=== PATIENT | female | born 1995 | race Two or more races ===

== ENCOUNTER 2017-05-12 23:28 | Emergency (ER) | payer MEDICAID ==
[~2017-05-12] VITALS: Ht 154.9 cm; Wt 68.9 kg
[2017-05-12 23:45] VITALS: BP 132/73
--- NOTE | 2017-05-13 | Emergency Room Report ---
History of Present Illness General Chief Complaint: Abdominal Pain Source: Patient Present Illness HPI 22-year-old female with no sig pmhx p/w abdominal pain 2 days. Patient states pain started gradually, localized to epigastric and left upper quadrant, non radiating, burning and cramping in nature, intermittent. No relieving or exacerbating factors. Severity is mild. Denies nvd. Denies fever, chills. No hx of abdominal surgeries. No hx of endoscopies/colonoscopies. Patient has been eating and drinking well No dysuria, hematuria, abnormal vaginal discharge Allergies: Coded Allergies: IBUPROFEN (Verified Allergy, Unknown, 05/12/17) Patient History Past Medical History: see triage record Past Surgical History: none Pertinent Family History: none Last Menstrual Period: 05/05/17 Now: No : 1 Para: 1 Reviewed Nursing Documentation: PMH: Agreed, PSxH: Agreed Nursing Documentation-PMH Past Medical History: No Stated History Review of Systems All Other Systems: negative except mentioned in HPI Physical Exam Vital Signs Date Time Temp Pulse Resp B/P (MAP) Pulse Ox O2 Delivery O2 Flow Rate FiO2 05/12/17 23:35 98.1 83 16 132/73 98 Room Air Sp02 EP Interpretation: reviewed, normal General Appearance: normal inspection, well appearing, no apparent distress, alert, GCS 15, non-toxic Head: normocephalic, atraumatic Eyes: bilateral eye normal inspection, bilateral eye PERRL, bilateral eye EOMI ENT: normal ENT inspection, normal pharynx, normal voice, moist mucus membranes Neck: normal inspection, full range of motion, supple Respiratory: normal inspection, lungs clear, normal breath sounds, no respiratory distress, no retraction, no wheezing, speaking full sentences, chest symmetrical Cardiovascular #1: normal inspection, regular rate, rhythm, no edema, normal capillary refill Cardiovascular #2: 2+ radial (R), 2+ radial (L) Gastrointestinal: normal inspection, non tender, soft, non-distended, no guarding Musculoskeletal: normal inspection, back normal, normal range of motion, non- tender Neurologic: normal inspection, alert, oriented x3, responsive, motor strength/ tone normal, sensory intact, normal gait, speech normal Psychiatric: normal inspection, judgement/insight normal, memory normal Skin: normal inspection, normal color, no rash, warm/dry, well hydrated, normal turgor Medical Decision Making Diagnostic Impression: Primary Impression: Abdominal pain ER Course 22-year-old female with abdominal pain Differential Diagnosis: Gastritis, gastroenteritis, UTI/pyelo At this time abdomen is soft nontender, not likely to have acute intra- abdominal surgical pathology, will hold CT for now. Plan: Basic labs, ua, ekg IVF ER course: Patient has remained stable during ED stay. Pain improved. Repeat abdominal exam is nontender, labs unremarkable Tolerating PO due to benign physical exam, and the fact that patient appears well, do not believe there is acute intraabdominal pathology to warrant CT scan at this time. Disposition: Patient is to be discharged to home. Patient is instructed to follow up with their primary care doctor within 5 days. Strict return precautions discussed with patient such as fever, chills, worsening/severe abdominal pain, nausea, vomiting, black or bloody stools, which may indicate severe illness. Patient verbalizes understanding and agrees with plan. Please note that this Emergency Department Report was dictated using [employer] assistant technology software, occasionally this can lead to erroneous entry secondary to interpretation by the dictation equipment Laboratory Tests Test 05/12/17 23:50 White Blood Count 10.6 K/UL (4.8-10.8) Red Blood Count 3.97 M/UL (4.20-5.40) L Hemoglobin 12.8 G/DL (12.0-16.0) Hematocrit 38.7 % (37.0-47.0) Mean Corpuscular Volume 97 FL (80-99) Mean Corpuscular Hemoglobin 32.1 PG (27.0-31.0) H Mean Corpuscular Hemoglobin Concent 33.0 G/DL (32.0-36.0) Red Cell Distribution Width 11.1 % (11.6-14.8) L Platelet Count 322 K/UL (150-450) Mean Platelet Volume 7.6 FL (6.5-10.1) Neutrophils (%) (Auto) 49.8 % (45.0-75.0) Lymphocytes (%) (Auto) 39.7 % (20.0-45.0) Monocytes (%) (Auto) 7.5 % (1.0-10.0) Eosinophils (%) (Auto) 2.3 % (0.0-3.0) Basophils (%) (Auto) 0.8 % (0.0-2.0) Urine Color Pale yellow Urine Appearance Clear Urine pH 6.5 (4.5-8.0) Urine Specific [place] 1.020 (1.005-1.035) Urine Protein Negative (NEGATIVE) Urine Glucose (UA) Negative (NEGATIVE) Urine Ketones Negative (NEGATIVE) Urine Occult Blood 2+ (NEGATIVE) H Urine Nitrite Negative (NEGATIVE) Urine Bilirubin Negative (NEGATIVE) Urine Urobilinogen Normal MG/DL (0.0-1.0) Urine Leukocyte Esterase 1+ (NEGATIVE) H Urine RBC 5-10 /HPF (0 - 2) H Urine WBC 0-2 /HPF (0 - 2) Urine Squamous Epithelial Cells Many /LPF (NONE/OCC) H Urine Bacteria Few /HPF (NONE) Urine HCG, Qualitative Negative Sodium Level 140 MMOL/L (136-145) Potassium Level 3.5 MMOL/L (3.5-5.1) Chloride Level 103 MMOL/L (98-107) Carbon Dioxide Level 31 MMOL/L (21-32) Anion Gap 6 mmol/L (5-15) Blood Urea Nitrogen 14 mg/dL (7-18) Creatinine 0.7 MG/DL (0.55-1.30) Estimate Glomerular Filtration Rate > 60 mL/min (>60) Glucose Level 93 MG/DL (74-106) Calcium Level 9.4 MG/DL (8.5-10.1) Total Bilirubin 0.2 MG/DL (0.2-1.0) Aspartate Amino Transferase (AST) 14 U/L (15-37) L Alanine Aminotransferase (ALT) 18 U/L (12-78) Alkaline Phosphatase 112 U/L (46-116) Total Protein 8.5 G/DL (6.4-8.2) H Albumin 4.5 G/DL (3.4-5.0) Globulin 4.0 g/dL Albumin/Globulin Ratio 1.1 (1.0-2.7) Lipase 133 U/L (73-393) Urine Opiates Screen Negative (NEGATIVE) Urine Barbiturates Screen Negative (NEGATIVE) Phencyclidine (PCP) Screen Negative (NEGATIVE) Urine Amphetamines Screen Negative (NEGATIVE) Urine Benzodiazepines Screen Negative (NEGATIVE) Urine Cocaine Screen Negative (NEGATIVE) Urine Marijuana (THC) Screen Negative (NEGATIVE) Last Vital Signs Date Time Temp Pulse Resp B/P (MAP) Pulse Ox O2 Delivery O2 Flow Rate FiO2 05/12/17 23:35 98.1 83 16 132/73 98 Room Air Disposition: HOME, SELF-CARE Condition: Improved Patient Instructions: Abdominal Pain, Adult William Zimmerman M.D. May 13, 2017 00:00
[2017-05-13 00:32] LABS: APPEARANCE,URINE CLEAR; KETONES,URINE NEGATIVE (NEGATIVE); LEUKOCYTE ESTERASE ,URINE 1+ (NEGATIVE); NITRITE,URINE NEGATIVE (NEGATIVE); PH,URINE 6.5 (4.5-8.0); PROTEIN,URINE NEGATIVE (NEGATIVE); UROBILINOGEN,URINE NORMAL MG/DL (0.0-1.0)
[2017-05-13 00:35] LABS: BASOPHILS % (AUTO) 0.8 % (0.0-2.0); EOSINOPHILS % (AUTO) 2.3 % (0.0-3.0); LYMPHOCYTES % (AUTO) 39.7 % (20.0-45.0); MEAN CORPUSCULAR HEMOGLOBIN 32.1 PG (27.0-31.0); MEAN CORPUSCULAR VOLUME 97 FL (80-99); MEAN PLATELET VOLUME 7.6 FL (6.5-10.1); MONOCYTES % (AUTO) 7.5 % (1.0-10.0); NEUTROPHILS % (AUTO) 49.8 % (45.0-75.0); PLATELET COUNT 322 K/UL (150-450); RED BLOOD COUNT 3.97 M/UL (4.20-5.40); RED CELL DISTRIBUTION WIDTH 11.1 % (11.6-14.8); WHITE BLOOD COUNT 10.6 K/UL (4.8-10.8)
[2017-05-13 00:52] LABS: ANION GAP 6 mmol/L (5-15); CALCIUM 9.4 MG/DL (8.5-10.1); CARBON DIOXIDE 31 MMOL/L (21-32); CHLORIDE 103 MMOL/L (98-107); CREATININE 0.7 MG/DL (0.55-1.30); GLOMERULAR FILTRATION RATE > 60 mL/min (>60); POTASSIUM 3.5 MMOL/L (3.5-5.1); SODIUM 140 MMOL/L (136-145)
[2017-05-13 01:01] LABS: BACTERIA,URINE FEW /HPF; SQUAMOUS EPITHELIAL CELL,UR MANY /LPF (NONE/OCC); WBC,URINE 0-2 /HPF (0 - 2)
[2017-05-13 01:07] LABS: ALANINE AMINOTRANSFERASE 18 U/L (12-78); ALBUMIN/GLOBULIN RATIO 1.1 (1.0-2.7); ASPARTATE AMINO TRANSFERASE 14 U/L (15-37); LIPASE 133 U/L (73-393); TOTAL PROTEIN 8.5 G/DL (6.4-8.2)
[2017-05-13 01:39] VITALS: BP 124/70
== END 2017-05-13 01:39 | disposition home or self-care (01) ==
LOC: EMR 23:51
DX: R10.9 Unspecified abdominal pain (principal); Z88.6 Allergy status to analgesic agent
CPT/HCPCS: 36415; 80053; 80307; 81003; 81025; 83690; 85025; 96360; 99284

== ENCOUNTER 2017-11-20 20:00 | Emergency (ER) | payer MEDICAID ==
[~2017-11-20] VITALS: Ht 157.5 cm; Wt 68.0 kg
[2017-11-20 20:31] VITALS: BP 124/74
[2017-11-20] MEDS ORDERED: CEPHALEXIN500 MG ORAL (20:48)
[2017-11-20 21:00] VITALS: BP 124/74
--- NOTE | 2017-11-21 15:28 | Emergency Room Report ---
History of Present Illness General Chief Complaint: Pain Source: Patient Present Illness HPI Patient present with complaints of possible infection to the right breast area Patient reports increased discomfort from that area Some discharge Ports that earlier there was some greenish discharge patient has had a nipple ring that was placed about one year ago Denies any other chest pain or shortness of breath Had questionable subjective fever earlier today Allergies: Coded Allergies: IBUPROFEN (Verified Allergy, Unknown, 05/12/17) Patient History Past Medical History: see triage record Pertinent Family History: none Last Menstrual Period: 11/18/17 Now: No : 2 Para: 1 Reviewed Nursing Documentation: PMH: Agreed; PSxH: Agreed Nursing Documentation-PMH Past Medical History: No Stated History Review of Systems All Other Systems: negative except mentioned in HPI Physical Exam Vital Signs Date Time Temp Pulse Resp B/P (MAP) Pulse Ox O2 Delivery O2 Flow Rate FiO2 11/20/17 20:02 98.6 70 14 124/74 97 Room Air 98.6 Sp02 EP Interpretation: reviewed, normal General Appearance: well appearing, no apparent distress Head: normocephalic, atraumatic Eyes: bilateral eye PERRL, bilateral eye EOMI ENT: normal pharynx Neck: supple Respiratory: lungs clear Cardiovascular #1: regular rate, rhythm Gastrointestinal: non tender, soft Musculoskeletal: normal inspection Neurologic: alert, oriented x3, responsive Skin: other - Examination of the right breast, with female nurse yusuf in the room patient does have a nipple ring still in place on the right side, there is some mild erosion into the area lower area on the lateral aspect, no obvious discharge was reproduced no mass or erythema, Lymphatic: no adenopathy Medical Decision Making Diagnostic Impression: Primary Impression: cellulitis ER Course Given the patient's history and findings it was recommended for her to remove the stud/earring from the right areolar region, patient was also placed on antibiotics at this time does not require further blood work or imaging does not appear septic or toxic no palpable masses patient will follow closely and return with any changes, Last Vital Signs Date Time Temp Pulse Resp B/P (MAP) Pulse Ox O2 Delivery O2 Flow Rate FiO2 11/20/17 21:00 70 14 124/74 97 Room Air 11/20/17 20:31 98.6 98.6 Status: improved Disposition: HOME, SELF-CARE Condition: Improved Scripts Cephalexin* (KEFLEX*) 500 Mg Capsule 500 MG ORAL EVERY 6 HOURS for 7 Days, CAP Prov: Rocky Henderson DO 11/20/17 Referrals: [facility],REFERRING (PCP) Patient Instructions: Cellulitis, [id number] Additional Instructions: Patient is provided with the discharge instructions notified to follow up with primary doctor in the next 2-3 days otherwise return to the er with any worsening symptoms. Please note that this report is being documented using [employer] technology. This can lead to erroneous entry secondary to incorrect interpretation by the dictating instrument. Rocky Henderson DO Nov 21, 2017 15:28
== END 2017-11-20 21:00 | disposition home or self-care (01) ==
LOC: EMR 20:32
DX: N61.0 Mastitis without abscess (principal); Z88.6 Allergy status to analgesic agent
CPT/HCPCS: 99282

== ENCOUNTER 2018-10-03 15:56 | Emergency (ER) | payer MEDICAID ==
[~2018-10-03] VITALS: Ht 160 cm; Wt 71.7 kg
[~2018-10-03 15:56] MED LIST: CEPHALEXIN500 MG ORAL; NKM
--- NOTE | 2018-10-03 16:14 | NUR ---
ED Nurse Note: Pt came in due to left 4th digit injury. Note twisting and mild swelling. Pt reported to injure it at her work place.
[2018-10-03 16:30] VITALS: BP 135/70
[2018-10-03] MEDS ORDERED: TYLENOL EXTRA500 MG ORAL (17:00)
--- NOTE | 2018-10-03 17:00 | Emergency Room Report ---
History of Present Illness General Chief Complaint: Upper Extremity Injury Source: Patient (Manfred Velasquez) Present Illness HPI 23-year-old female with no significant past medical history currently 3 months , G3, , here complaining of pain in the left ring finger after a fall., Upon movement of her finger, finger looks deformed, denies pain radiation tingling numbness. Taken any medication for pain. Later tells me that she also fell on the left side of body and slightly hit the left side of her face to the ground, denying dizziness, loss of consciousness, nausea vomiting, headache. Reports that her abdomen was not impacted. Denies abdominal pain, vaginal spotting or bleeding. S OB, palpitation, chest pain, dizziness, and all other associated symptoms patient is sitting comfortably. (Manfred Velasquez) Allergies: Coded Allergies: IBUPROFEN (Verified Allergy, Unknown, 10/03/18) Patient History Past Medical History: see triage record Past Surgical History: unable to obtain Pertinent Family History: none Now: Yes - 3month : 3 Para: 1 Immunizations: UTD Reviewed Nursing Documentation: PMH: Agreed; PSxH: Agreed (Manfred Velasquez) Nursing Documentation-PMH Past Medical History: No History, Except For Hx Hypertension: Yes (Manfred Velasquez) Review of Systems All Other Systems: negative except mentioned in HPI (Manfred Velasquez) Physical Exam Vital Signs Date Time Temp Pulse Resp B/P (MAP) Pulse Ox O2 Delivery O2 Flow Rate FiO2 10/03/18 16:04 98.6 77 18 96 Room Air 10/03/18 16:30 135/70 Sp02 EP Interpretation: reviewed, normal General Appearance: normal inspection, well appearing, no apparent distress, alert, GCS 15 Head: normocephalic, atraumatic Eyes: bilateral eye normal inspection, bilateral eye PERRL ENT: normal ENT inspection, normal pharynx Neck: normal inspection, full range of motion, supple Respiratory: normal inspection, chest non-tender, lungs clear, no wheezing Cardiovascular #1: normal inspection, regular rate, rhythm, no murmur, normal capillary refill Gastrointestinal: normal inspection, non tender, soft Genitourinary: no CVA tenderness Musculoskeletal: back normal, gait/station normal, normal range of motion, other - Flex deformity of left ring finger not tender to palpation Neurologic: normal inspection, alert, oriented x3 Psychiatric: normal inspection, judgement/insight normal Skin: normal inspection, normal color, no rash Lymphatic: normal inspection, no adenopathy (Manfred Velasquez) Medical Decision Making PA Attestation All my diagnosis and treatment plans were reviewed ad discussed with my supervising physician Dr. Gallegos (Manfred Velasquez) Diagnostic Impression: Primary Impression: Mallet deformity of left ring finger Additional Impression: Contusion of left arm ER Course 23-year-old female with no significant past medical history currently 3 months , G3, , here complaining of pain in the left ring finger after a fall., Upon movement of her finger, finger looks deformed, denies pain radiation tingling numbness. Taken any medication for pain. Later tells me that she also fell on the left side of body and slightly hit the left side of her face to the ground, denying dizziness, loss of consciousness, nausea vomiting, headache. Reports that her abdomen was not impacted. Denies abdominal pain, vaginal spotting or bleeding. S OB, palpitation, chest pain, dizziness, and all other associated symptoms patient is sitting comfortably. Ddx considered but are not limited to: left finger fracture, mallet finger, sprain, strain, arm contusion, arm fracture, cerebral hematoma, concussion Vital signs: are WNL, pt. is afebrile H&PE are most consistent with: left ring finger mallet finger, left arm contusion ORDERS: left finger Xray, tylenol ED INTERVENTIONS: None required at this time. DISCHARGE: At this time pt. is stable for d/c to home. Will provide printed patient care instructions, and any necessary prescriptions. Care plan and follow up instructions have been discussed with the patient prior to discharge. follow up with Ortho (Manfred Velasquez) Other X-Ray Diagnostic Results Other X-Ray Diagnostic Results : X-Ray ordered: left finger # of Views/Limited Vs Complete: 3 View Indication: Swelling EP Interpretation: Yes PA Xray: Interpretation reviewed, by supervising MD, and agrees with findings. Interpretation: no dislocation, no fractures, other - mallet deformity Impression: No acute disease Electronically Signed by: manfred josé PA-C (Manfred Velasquez) Other X-Ray Diagnostic Results : Electronically Signed by: Mirna Orellana documentation of Xray reviewed by me and is accurate, Herman Gallegos MD (Herman Gallegos MD) Last Vital Signs Date Time Temp Pulse Resp B/P (MAP) Pulse Ox O2 Delivery O2 Flow Rate FiO2 10/03/18 16:30 98.2 75 20 135/70 98 Room Air (Manfred Velasquez) Disposition: HOME, SELF-CARE Condition: Stable Scripts Acetaminophen* (TYLENOL EXTRA STRENGTH*) 500 Mg Tablet 500 MG ORAL Q8H PRN for Prn Headache/Temp > 101, #30 TAB 0 Refills Prov: Manfred Velasquez 10/03/18 Patient Instructions: Head Injury, Adult, [id number], Mallet Finger Additional Instructions: Come back to the emergency room if dizziness, vomiting, severe headache CT scan contraindicated at this point due to your status Manfred Velasquez October 03, 2018 17:00 Herman Galelgos MD October 04, 2018 22:38
[2018-10-03 17:11] VITALS: BP 128/82
--- NOTE | 2018-10-03 17:11 | NUR ---
ER DISCHARGE NOTE: Patient is cleared to be discharged per PA, pt is aox4, on room air, with stable vital signs. pt was given dc and prescription instructions, pt was able to verbalize understanding, pt id band removed. pt is able to ambulate with steady gait. pt took all belongings.
--- NOTE | 2018-10-04 11:47 | Diagnostic Imaging Report ---
Indication: pain in finger. trauma Findings: 3 views of the left fourth finger were obtained. No acute fractures, malalignment, erosions, or periosteal reaction are seen. Soft tissues are unremarkable. Impression: No acute findings.
== END 2018-10-03 17:30 | disposition home or self-care (01) ==
LOC: EMR 17:12
DX: M20.002 Unspecified deformity of left finger(s) (principal); S40.022A Contusion of left upper arm, initial encounter; W19.XXXA Unspecified fall, initial encounter; Y92.9 Unspecified place or not applicable; O16.9 Unspecified maternal hypertension, unspecified trimester; Z3A.00 Weeks of gestation of pregnancy not specified; O26.90 Pregnancy related conditions, unspecified, unspecified trimester; Z88.6 Allergy status to analgesic agent
CPT/HCPCS: 99283